=== PATIENT | female | born 1970 | race Caucasian/White ===

== ENCOUNTER 2021-03-31 09:00 | Outpatient (CLI) | payer OTHER | END 2021-03-31 09:30 | disposition home or self-care (01) | LOC: PPH VACUNA 09:00 | PROVIDERS: ATTEND Emergency Medicine Pediatric Emergency Medicine | DX: Z23 Encounter for immunization (principal) ==

== ENCOUNTER 2021-05-26 12:25 | Emergency (ER) | payer OTHER ==
[~2021-05-26] VITALS: Ht 165.1 cm; Wt 83.9 kg
[2021-05-26] MEDS ORDERED: TUSNEL LIQUID178 ML PO (16:57)
[2021-05-26] MEDS ORDERED: ZYRTEC10 MG PO (16:57)
[2021-05-26] MEDS ORDERED: IPRATROPIU0.2 MG/1 M IH (16:57)
[2021-05-26] MEDS ORDERED: FLONASE16 GM NASAL (16:57)
[2021-05-26] MEDS ORDERED: ZITHROMAX500 MG PO (16:57)
== END 2021-05-26 17:22 | disposition home or self-care (01) ==
LOC: ER 12:25
DX: B34.8 Other viral infections of unspecified site (principal); Z88.6 Allergy status to analgesic agent; Z88.0 Allergy status to penicillin

== ENCOUNTER 2022-07-17 23:46 | Emergency (ER) | payer OTHER ==
[~2022-07-17] VITALS: Ht 165.1 cm; Wt 83.9 kg
[~2022-07-17 23:46] MED LIST: FLONASE16 GM NASAL; IPRATROPIU0.2 MG/1 M IH; TUSNEL LIQUID178 ML PO; ZITHROMAX500 MG PO; ZYRTEC10 MG PO
[2022-07-17] MEDS ORDERED: COZAAR25 MG PO (23:58)
== END 2022-07-18 01:32 | disposition home or self-care (01) ==
LOC: ER 23:46
DX: M06.342 Rheumatoid nodule, left hand (principal); M06.341 Rheumatoid nodule, right hand; Z88.6 Allergy status to analgesic agent; Z88.0 Allergy status to penicillin